=== PATIENT | female | born 1930 | race Caucasian/White ===

== ENCOUNTER 2019-05-04 18:40 | Observation (INO) | payer MEDICARE, OTHER ==
[~2019-05-04] VITALS: Ht 166.6 cm; Wt 92.2 kg
--- OUTSIDE RECORDS SUMMARY | 2019-05-04 18:43 | XMS REPORT | Clinical Summary ---
Author Author [facility]A [facility] Organization [facility] Address Unknown Phone Unavailable Care Team Providers Care Bartender Manager Name Role Phone Sharpless PCP Allergies No Known Allergies Medications End Date Status Medication Sig Dispensed Refills Start Date Active ibuprofen (ADVIL,MOTRIN) Take 200 mg 0 200 MG tablet by mouth every 6 (six) hours as needed for Pain. Active naproxen Take 220 mg 0 (ALEVE,ANAPROX,MIDOL) 220 by mouth 2 MG tablet (two) times daily with breakfast and dinner. Active BENEFIBER, WHEAT DEXTRIN, Take by 0 ORAL mouth. Active RED YEAST RICE ORAL Take by 0 mouth. Active hydrochlorothiazide Take 12.5 mg 0 (HYDRODIURIL) 12.5 MG by mouth tablet daily. Active benazepril (LOTENSIN) 10 Take 10 mg by 0 MG tablet mouth daily. Active metFORMIN (GLUCOPHAGE) Take 500 mg 0 500 MG tablet by mouth 2 (two) times daily with breakfast and dinner. Active aspirin 81 MG EC tablet Take 81 mg by 0 mouth daily. Active glimepiride (AMARYL) 1 MG Take 1 mg by 0 tablet mouth every morning before breakfast. Active omega-3 fatty Take by 0 acids-vitamin E 1,000 mg mouth. Cap Active calcium carbonate Take 600 mg 0 (OS-MICHELLE) 600 mg (1,500 by mouth 2 mg) Tab (two) times daily with breakfast and dinner. Active ascorbic acid (VITAMIN C) Take 500 mg 0 500 MG tablet by mouth daily. Active multivitamin per tablet Take 1 tablet 0 by mouth daily. Active multivit,tx w/iron, Take by 0 hematinic, (B COMPLEX mouth. VITAMIN PLUS) 27-0.8 mg Tab Active Problems Not on file Social History Date Tobacco Use Types Packs/Day Years Used Light Tobacco Smoker Comments: quit in 60's Alcohol Use Drinks/Week oz/Week Comments Yes Sex Assigned at Date Recorded Not on file Industry Job Start Date Occupation Not on file Not on file Not on file Travel End Travel History Travel Start No recent travel history available. Last Filed Vital Signs Not on file Plan of Treatment Not on file Results Not on fileafter 05/03/2018 Insurance Payer Benefit Subscriber ID Type Phone Address Plan / Group MEDICARE MEDICARE A xxxxxxxxxx Medicare B [facility] SUPPLEMENT/INDIVIDUAL [place] xxxxxxxxx Comm [facility] [place] [address]
--- OUTSIDE RECORDS SUMMARY | 2019-05-04 18:43 | XMS REPORT | Clinical Summary ---
Author Author [facility] Organization [facility] Address Unknown Phone Unavailable Care Team Providers Care Black Mill Operator Name Role Phone Kenisha Lares MD PCP Allergies No Known Allergies Medications End Date Status Medication Sig Dispensed Refills Start Date Active hydroCHLOROthiazide TK 1 T PO D 0 (HYDRODIURIL) 12.5 MG 7 tablet Active benazepril (LOTENSIN) 20 TK 1 T PO D 3 MG tablet 7 Active metFORMIN (GLUCOPHAGE) TK 1 T PO BID 3 500 mg tablet WF 7 Active celecoxib (CeleBREX) 100 TK 1 C PO BID 3 MG capsule 7 Active glimepiride (AMARYL) 1 MG TK 1 T PO QAM 2 tablet 7 Active aspirin (ECOTRIN) 81 MG Take 81 mg by 0 enteric coated tablet mouth daily. Active OMEGA-3 FATTY ACIDS/FISH Take by 0 OIL (OMEGA 3 FISH OIL mouth. ORAL) Active Problems Not on file Social History Date Tobacco Use Types Packs/Day Years Used 1955 - 1958 Former Smoker Cigarettes Smokeless Tobacco: Never Used Alcohol Use Drinks/Week oz/Week Comments Yes One drink 4 times a YEAR Sex Assigned at Date Recorded Not on file Industry Job Start Date Occupation Not on file Not on file Not on file Travel End Travel History Travel Start No recent travel history available. 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 For more information, jorge thornton contact: Jaylan Antunez [address] [place] [address]
--- NOTE | 2019-05-04 20:06 | Diagnostic Imaging Report ---
Frontal and lateral views of the chest. HISTORY: Numbness, TIN COMPARISON: None available. DISCUSSION: Lungs: The lungs are well inflated. No evidence of a consolidative pneumonia or pulmonary alveolar edema. Pleura: No pleural effusion or pneumothorax. Heart and mediastinum: The cardiomediastinal silhouette appear(s) unremarkable. Bones and soft tissues: Mild to moderate degenerative changes of the thoracic spine. IMPRESSION: No acute radiographic abnormality. Signed by: Dr. Pancho Camacho D.O., M.M.M. on 05/04/2019 8:03 PM
--- NOTE | 2019-05-04 20:09 | Diagnostic Imaging Report ---
CT BRAIN [facility] HISTORY: Sudden numbness, hypertension COMPARISON: None. Technique: Noncontrast axial scans were obtained from skull base to the vertex. Coronal and sagittal reconstructions obtained from the axial data. One or more of the following dose reduction techniques were used: Automated exposure control, adjustment of the mA and/or kV according to patient size, and/or utilization of iterative reconstruction technique. DISCUSSION: Scalp/Skull: Unremarkable. Brain sulci: Mildly prominent. Ventricles: Compensatory dilatation. Extra-axial spaces: No masses or fluid collections. Carotid siphon calcifications are present. Parenchyma: Moderate to severe bilateral deep white matter hypodensity is likely chronic microvascular ischemic change. Otherwise, no masses, hemorrhage, or large vascular territory acute infarct. Dural sinuses: No abnormal densities. Sellar/Suprasellar region: Intact. Skull base: Intact. Incidental findings: Right frontal sinus, right posterior ethmoid air cell, and right sphenoid sinus opacification is present. Mild sclerosis around the right sphenoid sinus suggests chronic inflammation. Trace right mastoid effusion is present. IMPRESSION: 1. No acute intracranial abnormalities. 2. Moderate to severe supratentorial chronic microvascular ischemic change. Mild generalized cerebral volume loss. Signed by: Dr. Jhon Fox M.D. on 05/04/2019 8:06 PM
[2019-05-04] MEDS ORDERED: DEXTROSE 50% SYRINGE 50 ML IV PRN (20:30)
[2019-05-04] MEDS ORDERED: ASPIRIN 81 MG CHEW TAB PO ONE (20:30)
[2019-05-04] MEDS ORDERED: SODIUM CHLORIDE FLUSH 10 ML SYR INJ PRN (20:30)
[2019-05-04] MEDS ORDERED: ONDANSETRON HCL INJ 2MG/ML 2ML 2 MG/ML VIAL IV PRN (20:30)
--- OUTSIDE RECORDS SUMMARY | 2019-05-04 20:34 | XMS REPORT ---
Author Author [facility] Address Unknown Phone Unavailable Care Team Providers Care Sales Assoc Name Role Phone LEONARD WEAVER Unavailable Unavailable Problems This patient has no known problems. Allergies, Adverse Reactions, Alerts This patient has no known allergies or adverse reactions. Medications This patient has no known medications. Results Test Description Test Time Test Comments Text Results Atomic Results Result Comments CT BRAIN WO-HOPD 2019-05-04 20:03:00 [place] [address] Patient Name: MISHEL VÁSQUEZ MR #: [id number] : 1930 Age/Sex: 88/F Req #: [id number] Adm Physician: Ordered by: LEONARD WEAVER MD Report #: [id number] Location: FS Room/Bed: Procedure: [id number] HOPD/CT BRAIN [facility] Exam Date: Exam Time: REPORT STATUS: Signed CT BRAIN [facility] HISTORY: Sudden numbness, hypertension COMPARISON: None. Technique: Noncontrast axial scans were obtained from skull base to the vertex. Coronal and sagittal reconstructions obtained from the axial data. One or more of the following dose reduction techniques were used: Automated exposure control, adjustment of the mA and/or kV according to patient size, and/or utilization of iterative reconstruction technique. DISCUSSION: Scalp/Skull: Unremarkable. Brain sulci: Mildly prominent. Ventricles: Compensatory dilatation. Extra-axial spaces: No masses or fluid collections. Carotid siphon calcifications are present. Parenchyma: Moderate to severe bilateral deep white matter hypodensity is likely chronic microvascular ischemic change. Otherwise, no masses, hemorrhage, or large vascular territory acute infarct. Dural sinuses: No abnormal densities. Sellar/Suprasellar region: Intact. Skull base: Intact. Incidental findings: Right frontal sinus, right posterior ethmoid air cell, and right sphenoid sinus opacification is present. Mild sclerosis around the right sphenoid sinus suggests chronic inflammation. Trace right mastoid effusion is present. IMPRESSION: 1. No acute intracranial abnormalities. 2. Moderate to severe supratentorial chronic microvascular ischemic change. Mild generalized cerebral volume loss. Signed by: Dr. Jhon Fox M.D. on 05/04/2019 8:06 PM Dictated By: JHON FOX MD 05 Transcribed By: BETZAIDA on 05/04/192005 COPY TO: LEONARD WEAVER MD CXR 2 VIEW - HOPD 2019-05-04 20:01:00 [place] [address] Patient Name: MISHEL VÁSQUEZ MR #: [id number] : 1930 Age/Sex: 88/F Req #: [id number] Adm Physician: Ordered by: LEONARD WEAVER MD Report #: [id number] Location: [facility] Room/Bed: Procedure: [id number] HOPD/CXR 2 VIEW - HOPD Exam Date: Exam Time: REPORT STATUS: Signed Frontal and lateral views of the chest. HISTORY: Numbness, TIN COMPARISON: None available. DISCUSSION: Lungs: The lungs are well inflated. No evidence of a consolidative pneumonia or pulmonary alveolar edema. Pleura: No pleural effusion or pneumothorax. Heart and mediastinum: The cardiomediastinal silhouette appear(s) unremarkable. Bones and soft tissues: Mild to moderate degenerative changes of the tho racic spine. IMPRESSION: No acute radiographic abnormality. Signed by: Dr. Chris Camacho D.O., M.M.M. on 05/04/2019 8:03 PM Dictated By: CHRIS CAMACHO DO 02 Transcribed By: BETZAIDA on 05/04/192002 COPY TO: LEONARD WEAVER MD
--- OUTSIDE RECORDS SUMMARY | 2019-05-04 20:34 | XMS REPORT | Clinical Summary ---
Author Author FLORA [facility]per[facility] EnergyGr[facility] Organization [facility] Address Unknown Phone Unavailable Care Team Providers Care Architectural Design Professor Name Role Phone Sharpless PCP Allergies No [...] B [facility] SUPPLEMENT/INDIVIDUAL [place] xxxxxxxxx Comm [place] ([place] [place] [address]
--- OUTSIDE RECORDS SUMMARY | 2019-05-04 20:34 | XMS REPORT | Clinical Summary ---
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 For more information, jorge thornton contact: Jaylan Antunez [address] [place] [address]
[2019-05-04] MEDS ORDERED: ASPIRIN 81 MG CHEW TAB ONE (21:08)
[2019-05-04 21:41] VITALS: BP 193/88
[2019-05-04 22:11] VITALS: BP 193/88
[2019-05-05] VITALS (9 sets, daily range): BP systolic 127–157; BP diastolic 60–79
[2019-05-05 05:24] LABS: CREATINE KINASE MB 1.1 ng/mL (0-5.0)
--- NOTE | 2019-05-05 07:00 | NUR ---
BEDSIDE ROUNDS COMPLETE NO DISTRESS NOTED, UPDATED ON POC VOICED UNDERSTANDING, DENIES PAIN AT THIS TIME, CALL LIGHT IN REACH WILL CONTINUE TO MONITOR
[2019-05-05] MEDS: ASPIRIN 81 MG ENTERIC COATED PO SCH (09:00)
[2019-05-05] MEDS ORDERED: BENAZEPRIL HCL10 MG PO (10:00)
[2019-05-05] MEDS ORDERED: CELEBREX100 MG PO (10:00)
[2019-05-05] MEDS ORDERED: METFORMIN HCL500 MG PO (10:00)
[2019-05-05] MEDS ORDERED: GLIMEPIRIDE1 MG PO (10:00)
[2019-05-05] MEDS ORDERED: TRIAMTERENE-HCTZ1 EA PO (10:00)
[2019-05-05] MEDS ORDERED: ASPIRIN81 MG PO (10:02)
[2019-05-05] MEDS: METFORMIN HCL 500 MG TAB PO SCH ×2 (10:45→17:00)
[2019-05-05] MEDS: TRIAMTERENE/HCTZ 37.5-25 MG TAB PO SCH (11:00)
[2019-05-05] MEDS: BENAZEPRIL HCL 10 MG TAB PO SCH (11:00)
[2019-05-05] MEDS: GLIMEPIRIDE 2 MG TAB PO SCH (11:30)
[2019-05-05 12:39] LABS: CHOL/HDL RATIO 3.7 (3.0-3.6)
[2019-05-05] MEDS ORDERED: DEXTROSE 50% SYRINGE 50 ML IV PRN (13:45)
--- NOTE | 2019-05-05 14:55 | Diagnostic Imaging Report ---
History: Numbness right face, arm and leg Comparison studies: Head CT on 05/04/2019 Technique: Sagittal T2; axial DWI, FLAIR, MPGR, T1, Coronal FLAIR. Intravenous contrast: None Findings: Scalp: Normal in signal . No masses . Bone marrow: Normal in signal intensity. Extra-axial: No masses or fluid collections. Brain sulci: Appropriate for age. Ventricles: Normal in size . No hydrocephalus . Parenchyma: Multiple discrete and confluent T2 FLAIR hyperintense foci in the supratentorial white matter are nonspecific microvascular ischemic changes. No masses, hemorrhage, acute or chronic cortical ischemic insults. Suprasellar region: No abnormalities. Craniocervical junction: No abnormalities. Patent foramen magnum. No Chiari one malformation. Vessels: Normal flow-voids in the arteries and sinuses. Incidental T2 hyperintense mucosal thickening in the right sphenoid sinus, right ethmoid air cells and bilateral maxillary sinuses IMPRESSION: 1. No acute abnormalities. 2. Specifically, no acute vascular insults. 3. No changes compared to the head CT on 05/04/2019. Chronic findings: 1. Mild generalized volume loss. 2. Diffuse supratentorial white matter microvascular ischemic changes Signed by: Dr. Brenden Mckeon M.D. on 05/05/2019 2:51 PM
[2019-05-05 16:01] LABS: CREATINE KINASE 61 IU/L (29-168)
[2019-05-05] MEDS: INSULIN LISPRO 100 UNIT/1 ML 3ML VIAL SQ SCH ×2 (16:30→20:43)
--- NOTE | 2019-05-05 16:33 | Consultation ---
DATE OF CONSULTATION: 05/05/2019 Neurology Consult Note HISTORY OF PRESENT ILLNESS: Ms. Chavez is an 88-year-old right-hand dominant woman with past medical history significant for hypertension, hyperlipidemia, untreated, and diabetes mellitus type 2, admitted to [facility] on May 04, 2019, with symptoms suspicious for transient ischemic attack or stroke. On the day of admission, the patient experienced the onset of numbness affecting the tips of the fingers of the right hand as well as numbness and weakness affecting the entirety of the right leg. The patient cannot state whether or not the symptoms began acutely or gradually. Due to weakness and numbness of the right leg, Ms. Chavez endorses poor balance and impairment of gait as well. She does not report a visual field cut or other disturbance, dysarthria, aphasia, facial droop, dizziness, or confusion associated with the above symptoms. Once she noted the numbness in the tips of her fingers of the right hand, Ms. Chavez began to move her hand, flexing and extending her wrist and fingers until the numbness resolved after approximately 10 to 15 minutes. However, the symptoms in her right leg persisted. Ms. Chavez telephoned her daughter, who immediately drove to the patient's home; it took the patient's daughter approximately [address] from her home to her mother's home. When Ms. Chavez' daughter arrived at the patient's home, Ms. Chavez reported her symptoms were significantly improved, but had not fully resolved. Ms. Chavez was then taken to the emergency center at [facility] for further evaluation of her symptoms. The numbness and weakness in the patient's right leg had resolved. On admission, Ms. Chavez was afebrile with a blood pressure of 188/91 mmHg and a pulse of 99 beats per minute. Her neurological examination was documented as being nonfocal. An electrocardiogram revealed the patient to be in atrial fibrillation with rapid ventricular response at 110 beats per minute. A CT of the brain without contrast did not reveal evidence of recent large territorial ischemia or hemorrhage. Ms. Chavez was subsequently admitted to the hospital under observation status for further evaluation and treatment of a suspected transient ischemic attack. Ms. Chavez takes aspirin 81 mg by mouth three times per week. She previously took this medication daily, but due to extensive bruising, the frequency was decreased to three times per week. To her knowledge, Ms. Chavez does not have a history of atrial fibrillation or other cardiac dysrhythmia. REVIEW OF SYSTEMS: Fatigue, fast or irregular heartbeat, shortness of breath, dyspnea on exertion, chronic bilateral knee pain, loss of vision (chronic from macular degeneration), right leg weakness, numbness of the right leg and the tips of the fingers of the right hand, impairment of balance and gait. Otherwise, a 12-point review of systems is negative. PAST MEDICAL HISTORY: Hypertension, hyperlipidemia, diabetes mellitus type 2, and macular degeneration. PAST SURGICAL HISTORY: Cholecystectomy/appendectomy, bilateral tubal ligation, bilateral cataract removal, repair of retinal detachment x2, cystectomy on the scalp. PAST HOSPITALIZATIONS: Surgeries/procedures as listed, diffuse arthralgias, childbirth. FAMILY MEDICAL HISTORY: Coronary artery disease with myocardial infarction, stroke, diabetes mellitus, macular degeneration. SOCIAL HISTORY: Ms. Chavez is a . She is retired. The patient endorses a remote history of tobacco use, but quit smoking cigarettes 50+ years ago. In the past 2-3 years, Ms. Chavez has consumed no alcohol. Prior to that, she endorses occasional alcohol consumption. The patient does not report current or prior recreational drug use. HOME MEDICATIONS: Aspirin 81 mg by mouth 3 times per week, benazepril 20 mg by mouth daily, triamterene/hydrochlorothiazide 37.5/25 mg one tablet by mouth daily, glimepiride 1 mg by mouth daily, metformin 500 mg by mouth twice daily, Celebrex 100 mg by mouth twice daily. HOSPITAL MEDICATIONS: Aspirin, benazepril, Celebrex, glimepiride, metformin, Zofran, triamterene/hydrochlorothiazide. ALLERGIES: STATINS. NO KNOWN FOOD ALLERGIES. NO KNOWN ALLERGIES TO LATEX. THE PATIENT DOES REPORT AN ALLERGY TO ADHESIVES. NO KNOWN ALLERGIES TO IODINE OR OTHER CONTRAST MATERIALS. PHYSICAL EXAMINATION: VITAL SIGNS: Height 66 inches, weight 203 pounds, BMI 33.2 kg/m2. Blood pressure 141/63 mmHg, pulse 101 beats per minute, respiratory rate 18 breaths per minute, and oxygen saturation 98% on room air. GENERAL: The patient is awake and alert, does not appear distressed. Obese. HEENT: Normocephalic, atraumatic. Pupils are surgical. Moist mucous membranes. NECK: Supple. No appreciable thyromegaly. No appreciable carotid bruits. CARDIOVASCULAR: S1, S2, tachycardic, irregular rhythm. No murmurs, rubs, or gallops. RESPIRATORY: Clear to auscultation bilaterally. No wheezes, rhonchi, or rales. EXTREMITIES: The skin is warm and dry. No clubbing, cyanosis, or edema. The posterior tibial and dorsalis pedis pulses are 1+ and symmetric. SKIN: No rashes or lesions. NEUROLOGIC: Memory/Attention: The patient is awake and alert, oriented to person, place, time, and situation. Cranial Nerves: Cranial nerve I - not tested. Cranial nerve II, III, IV, and - pupils are surgical. Extraocular movements intact. No nystagmus. Cranial nerve V - sensation to light touch and pinprick is intact in the bilateral V1 through V3 distributions. Strength in the temporalis and masseter muscles are within normal limits. Cranial nerve VII - the face is symmetric as are all facial movements. Strength is within normal limits. Cranial nerve VIII - hearing is intact to finger rub bilaterally. Cranial nerve IX, X - the soft palate elevates equally and symmetrically. Cranial nerve XI - normal strength of the bilateral sternocleidomastoid and trapezius muscles. Cranial nerve XII - the tongue protrudes midline and moves symmetrically from [id number]-[id number]. Strength: Bulk is normal. Strength is 5/5 in the bilateral deltoids, biceps, triceps, wrist flexors and extensors, finger flexors and extensors, intrinsic hand muscles, hip flexors, knee flexors and extensors, ankle dorsiflexion and plantar flexion, and intrinsic foot muscles. Tone is normal. DTRs: Deep tendon reflexes are 1+ and symmetric at the triceps, biceps, and brachioradialis. Deep tendon reflexes are trace and symmetric at the patellas. Deep tendon reflexes are absent and symmetric at the Achilles. Plantar responses are flexor bilaterally. Sensation: Sensation is intact to light touch and pinprick in both arms and both legs. Cerebellar: Bhnpwr-owwh-oiigqv and heel-multani movements are intact without dysmetria or other impairment. Gait: Deferred. Speech: Spontaneous speech is normal without appreciable dysarthria or aphasia. Repetition is intact. Involuntary movements: None. Pronator Drift: None. LABORATORY DATA: Cardiac enzymes are negative x1. Fingerstick blood glucoses have ranged from 161-187. DIAGNOSTIC STUDIES: Electrocardiogram on 05/04/2019: Atrial fibrillation with rapid ventricular response at 110 beats per minute. Low-voltage QRS. Chest x-ray on 05/04/2019: No acute radiographic abnormality. CT of the brain without contrast on 05/04/2019: On my review, there is no evidence of recent or remote large territorial ischemia, hemorrhage, mass, or mass effect. There is diffuse cerebral atrophy with compensatory dilatation of the ventricles, appropriate for age. There are findings compatible with dxohullv-kh-puzcxi chronic small vessel ischemic disease. Echocardiogram on 05/05/2019: Ejection fraction 60%. Trace pericardial effusion. Concentric left ventricular hypertrophy. Trace mitral and tricuspid regurgitation. Bilateral carotid artery ultrasound with Doppler on 05/05/2019: There is no atherosclerosis in the right carotid artery system. There is atherosclerosis without hemodynamically significant stenosis of the left internal carotid artery. Flow is antegrade in the bilateral vertebral arteries. ASSESSMENT AND PLAN: Ms. Chavez is an 88-year-old right-hand dominant woman with multiple vascular risk factors, admitted to [facility] on May 04, 2019, with possible transient ischemic attack versus stroke. At present, the patient's neurological examination is nonfocal. Her laboratory data and other diagnostic studies have been reviewed and are documented above. It is possible the symptoms experienced by Ms. Chavez, particularly the symptoms affecting the right leg, did represent transient ischemic attack. However, the symptoms did persist for more than 1 hour, possibly longer. Therefore, it is possible the patient may have experienced a small stroke with rapid recovery. RECOMMENDATIONS: Are as follows: 1. A lipid panel and hemoglobin A1c will be ordered. 2. A MRI of the brain without contrast will be ordered to further evaluate for transient ischemic attack versus stroke. 3. Continue treatment with aspirin 81 mg by mouth daily for stroke prophylaxis pending an evaluation by Cardiology. The presence of paroxysmal atrial fibrillation indicates a need for anticoagulation. However, due to the patient's history of macular degeneration and unsteadiness of gait at baseline, treatment with anticoagulant may not be feasible. 4. The patient's blood pressures may be gradually normalized. Her goal blood pressure prior to discharge is less than 140/90 mmHg. Continue with current medications. Monitor vital signs per unit protocol and adjust medications accordingly. 5. Follow up the results of the lipid panel. The patient's goal total cholesterol is less than 200 with an LDL of less than 70. Ms. Chavez has a documented allergic reaction to statin medications. If she is found to have an elevated cholesterol, treatment with an alternative medications such as fenofibrate or ezetimibe may be indicated. 6. Follow up the results of the hemoglobin A1c. The patient's goal hemoglobin A1c is less than 7.0. Continue current oral hypoglycemic medications. Continue to monitor fingerstick serum glucoses per unit protocol. Tight glycemic control is recommended while the patient is hospitalized. 7. Speech and Physical Therapy consultations will be deferred as there are no deficits on the patient's current neurological examination. 8. GI prophylaxis with Pepcid 20 mg by mouth twice daily with meals. Deep vein thrombosis prophylaxis with TONY hose and SCDs. 9. Defer treatment of the remaining medical comorbidities to the primary and other services following the patient. Thank you for this consultation. I will continue to follow the patient while she remains in the hospital. TIME SPENT: 50 minutes. Belgica Alston MD CP/CASSANDRA /[id number] MTDAlicia
[2019-05-05] MEDS: CELECOXIB 100 MG CAP PO SCH (17:00)
[2019-05-05] MEDS: FAMOTIDINE 20 MG TAB PO SCH (18:36)
[2019-05-05] MEDS ORDERED: IOPAMIDOL 370 MG/ML 200 ML INFUS..BTL INJ ONE (18:51)
[2019-05-05] MEDS ORDERED: SODIUM CHLORIDE 0.9% 100 ML 100 ML ONE (18:51)
--- NOTE | 2019-05-05 19:27 | Diagnostic Imaging Report ---
CTA NECK HISTORY: TIA COMPARISON: MRI of the brain 05/05/2019, head CT 05/04/2019 TECHNIQUE: CTA of the neck was performed with intravenous iodine based contrast. Coronal, sagittal, and oblique maximum intensity projection reformations were created. 3-D reformatted images were also created. One or more of the following dose reduction techniques were used: Automated exposure control, adjustment of the mA and/or kV according to patient size, and/or utilization of iterative reconstruction technique. DISCUSSION: If present, any cervical carotid stenosis will be measured as a percentage relative to the apache artery distal to the stenosis (NASCET). There are mild calcifications in the aortic arch and proximal great vessels. Right Carotid: Mild right carotid bulb calcified plaque without significant stenosis. Left Carotid: Mild left carotid bulb calcified plaque without significant stenosis. Right vertebral artery: Mild calcified plaque at the right vertebral artery ostium causes mild focal stenosis. Left vertebral artery: Patent, no abnormalities. The intracranial arterial vasculature is partially visualized. Mild bilateral carotid siphon calcifications are present without significant stenosis. Additional findings: Bilateral ocular lens replacement. There is mild scarring in the lung apices. A few small hypodense thyroid nodules are present. There is a small coarse calcification in the thyroid isthmus. There are prominent degenerative changes throughout the spine. Partially visualized enlarged pulmonary artery suggests pulmonary hypertension. IMPRESSION: 1. Mild focal bilateral carotid bulb and right vertebral artery ostium calcified plaque without significant stenosis. 2. No other cervical CTA abnormalities. Signed by: Dr. Jhon Fox M.D. on 05/05/2019 7:23 PM
--- NOTE | 2019-05-05 21:46 | NUR ---
Cardiology Consult Dictation# [id number]
[2019-05-06] VITALS: BP 134/63
--- NOTE | 2019-05-06 01:44 | Consultation ---
DATE OF CONSULTATION: 05/05/2019 Cardiology Consultation REQUESTING PHYSICIAN: Matthias Dangelo MD. REASON FOR CONSULTATION: TIA. HISTORY OF PRESENT ILLNESS: This is an 88-year-old woman with hypertension, hyperlipidemia, and diabetes mellitus, who presented with complaints of right- sided numbness in her fingers and lower extremity. The symptoms started yesterday afternoon and she therefore presented to the ER for further evaluation. Her symptoms have subsequently resolved. The patient was admitted for further evaluation of suspected TIA. On evaluation in the ER, EKG was suspicious for atrial fibrillation, for which Cardiology is consulted. The patient denies any history of arrhythmia. She denies any chest pain, shortness of breath, palpitations, edema, orthopnea, PND, or lightheadedness. REVIEW OF SYSTEMS: Negative, except as per HPI. PAST MEDICAL HISTORY: 1. Diabetes mellitus. 2. Hypertension. 3. Hyperlipidemia. 4. History of cardiac murmur. 5. Macular degeneration. PAST SURGICAL HISTORY: 1. Cholecystectomy. 2. Appendectomy. 3. Tubal ligation. 4. Cataract surgery. ALLERGIES: PLEASE SEE EMR. MEDICATIONS: Please see medication list. SOCIAL HISTORY: Remote history of tobacco use. No alcohol or illicit drugs. FAMILY HISTORY: Pertinent for mother with CVA. PHYSICAL EXAMINATION: VITAL SIGNS: Temperature 97.6 degrees, pulse 76, respiratory rate 18, blood pressure 156/75, oxygen 94% on room air. GENERAL: Elderly woman, awake, alert, well developed, well nourished, in no acute distress. HEENT: Normocephalic, atraumatic. Pupils equal. No scleral icterus. NECK: Supple. No thyromegaly or cervical lymphadenopathy. No carotid bruits. LUNGS: Clear to auscultation bilaterally. No wheezes or crackles. CARDIOVASCULAR: Normal rate, irregular rhythm. No murmur. Normal S1 and S2. ABDOMEN: Soft, nontender. EXTREMITIES: No edema. NEUROLOGIC: Nonfocal focal exam. LABORATORY DATA: Cholesterol 212, triglycerides 228, LDL 108, HDL 58. Chest x- ray, no acute radiographic abnormality. EKG, normal sinus rhythm with frequent PACs. Telemetry, sinus rhythm with frequent PACs and PVCs. IMPRESSION: 1. Transient ischemic attack. 2. Diabetes mellitus. 3. Hyperlipidemia. 4. Hypertension. RECOMMENDATIONS: The patient's carotid Doppler was reviewed. Velocities were elevated in the distal left internal carotid artery, although the vessel was tortuous, could be secondary to hemodynamically significant stenosis versus vessel tortuosity. CTA of the neck for further evaluation. Maintain the patient on telemetry while admitted to evaluate for any arrhythmias. Review of current EKG as well as telemetry is not consistent with atrial fibrillation, but rather with sinus rhythm with frequent supraventricular ectopic beats. Start metoprolol at this time. The patient's LDL is above goal; however, she has history of statin intolerance. She will need to be started on PCSK9 inhibitors as an outpatient. Continue anti-platelet therapy. No indication for anticoagulation at this time. Thank you for this consult. We will continue to follow. MD KANA Clark/CASSANDRA /[id number] MTDD
[2019-05-06 04:00] VITALS: BP 140/71
[2019-05-06] MEDS: INSULIN LISPRO 100 UNIT/1 ML 3ML VIAL SQ SCH ×3 (07:30→16:30)
[2019-05-06] MEDS: METFORMIN HCL 500 MG TAB PO SCH ×2 (08:00→17:00)
[2019-05-06 08:02] VITALS: BP 156/91
[2019-05-06] MEDS ORDERED: NON-FORMULARY MEDICATION (Glimepiride 1 MG) PO SCH (09:00)
[2019-05-06 09:25] VITALS: BP 156/91
[2019-05-06] MEDS: FAMOTIDINE 20 MG TAB PO SCH ×2 (09:25→16:30)
[2019-05-06] MEDS: CELECOXIB 100 MG CAP PO SCH ×2 (09:25→17:56)
[2019-05-06] MEDS: ASPIRIN 81 MG ENTERIC COATED PO SCH (09:25)
[2019-05-06] MEDS: TRIAMTERENE/HCTZ 37.5-25 MG TAB PO SCH (09:25)
[2019-05-06] MEDS: GLIMEPIRIDE 2 MG TAB PO SCH (09:25)
[2019-05-06] MEDS: BENAZEPRIL HCL 10 MG TAB PO SCH (09:25)
--- NOTE | 2019-05-06 09:54 | NUR ---
spoke with md bennett who states she still needs to read mri and speak to pt prior to dc.
[2019-05-06 11:42] VITALS: BP 140/82
[2019-05-06] MEDS ORDERED: ONDANSETRON HCL 4 MG ORAL DISINTEGRATING TAB PO PRN (11:45)
[2019-05-06] MEDS: METOPROLOL TARTRATE 25 MG TAB PO SCH ×2 (11:57→17:56)
--- NOTE | 2019-05-06 15:08 | NUR ---
Inpatient screen completed to determine the needs of skilled PT services. Noted loss of balance during ambulation with RW. Patient will benefit from skilled PT evaluation and treat to address impairments. thank you Addendum: 05/06/19 at 1508 by Ben hinojosa PT Amended: Links added.
[2019-05-06 15:58] VITALS: BP 167/79
[2019-05-06] MEDS ORDERED: METOPROLOL TART25 MG PO (18:30)
--- NOTE | 2019-05-06 19:15 | NUR ---
Patient discharged in good condition. No complaints made. Alert and oriented.
--- NOTE | 2019-05-07 01:20 | Progress Note ---
DATE: 05/06/2019 SUBJECTIVE: The patient denies chest pain or shortness of breath. OBJECTIVE: VITAL SIGNS: Temperature 97.5 degrees, pulse 90, respiratory rate 20, blood pressure 156/91, and oxygen saturation 96% on room air. GENERAL: Awake and alert, in no acute distress. LUNGS: Clear to auscultation bilaterally. No wheezes or crackles. CARDIOVASCULAR: Normal rate regular and rhythm. No murmur. Normal S1 and S2. ABDOMEN: Soft and nontender. EXTREMITIES: No edema. CARDIAC MEDICATIONS: Metoprolol tartrate 25 mg p.o. b.i.d., benazepril 20 mg p.o. daily, triamterene and hydrochlorothiazide daily, and aspirin 81 mg p.o. daily. LABORATORY DATA: None today. TELEMETRY: Normal sinus rhythm with PVCs and PACs. IMPRESSION: 1. Transient ischemic attack. 2. Diabetes mellitus. 3. Hypertension. 4. Hyperlipidemia. 5. Suspected atrial fibrillation. RECOMMENDATIONS: No evidence of atrial fibrillation on review of telemetry and EKGs. The patient will need outpatient telemetry monitoring for further evaluation. CTA of the neck did not reveal any hemodynamically significant stenosis in the carotid system bilaterally. Continue metoprolol, titrate as tolerated for blood pressure control. Discussed statin therapy with the patient. She describes history of statin intolerance. Discussed attempting PCSK9 inhibitor as an outpatient. Continue anti-platelet therapy. No indication for anticoagulation at this time given no clear evidence of atrial fibrillation. Thank you for this consult. We will continue to follow. Karen Vasquez MD ABS/MODL /[id number]
--- NOTE | 2019-05-26 01:50 | Discharge Summary ---
DISCHARGE DIAGNOSIS: Transient ischemic attack . HISTORY OF PRESENT ILLNESS AND HOSPITAL COURSE: The patient is a lady, who presented with neurological symptoms, where she was found to have TIA of the left side, so she was brought in and placed on appropriate medication. The patient improved significantly in a very short period of time, so she was discharged home with continuation of medications plus aspirin. She will follow up with her PCP in 1 to 2 weeks. Please see hospital chart for full details. MD GIOVANY Benitez/CASSANDRA /[id number]
== END 2019-05-06 19:15 | disposition home or self-care (01) ==
LOC: FSED 18:40 → ERHOLD 20:32 → MED/SURG 21:39
PROVIDERS: ADMIT Internal Medicine; ATTEND Internal Medicine
DX: G45.9 Transient cerebral ischemic attack, unspecified (principal); I10 Essential (primary) hypertension; E11.9 Type 2 diabetes mellitus without complications; Z87.891 Personal history of nicotine dependence; I48.91 Unspecified atrial fibrillation; Z82.49 Family history of ischemic heart disease and other diseases of the circulatory system; Z88.8 Allergy status to other drugs, medicaments and biological substances; E78.5 Hyperlipidemia, unspecified; E66.9 Obesity, unspecified; Z68.33 Body mass index [BMI] 33.0-33.9, adult; Z79.84 Long term (current) use of oral hypoglycemic drugs
CPT/HCPCS: 36415 ×2; 70450; 70498; 70551; 71046; 80048; 80061; 80076; 82550; 82553 ×2; 82948 ×3; 83036; 84484 ×2; 85025; 93005; 93306; 93880; 97139; 99284; G0378 ×3; Q9967